=== PATIENT | female | born 1945 | race Caucasian/White ===

== ENCOUNTER 2022-02-05 12:57 | Emergency (ER) | payer MEDICARE, SELFPAY ==
--- NOTE | 2022-02-05 13:06 | ED.SKABFB ---
HPI - Skin/Abscess/Foreign Bdy General Chief complaint: Skin/Abscess/Foreign Body Stated complaint: Rash Time Seen by Provider: 02/05/22 13:05 Source: patient Mode of arrival: ambulatory Limitations: no limitations History of Present Illness HPI narrative: Ms. Rocha is a 76-year-old female patient presenting to the clinic today with complaints of rash x2 days. She reports she had a glass fixture fall approximately a week ago and received some small cuts to the lower legs. She feels that there may be glass still embedded into her legs. Reports when she gets into the bathtub her legs are on fire due to the abraised areas. MD complaint: rash Related Data Home Medications Medication Instructions Recorded Confirmed acyclovir 400 mg PO BID 02/05/22 02/05/22 brimonidine-timolol [Combigan] 0.2 drp LEFT EYE BID 02/05/22 02/05/22 diltiazem HCl 30 mg PO BID 02/05/22 02/05/22 hydralazine 25 mg PO QID PRN 02/05/22 02/05/22 latanoprost 0.005 drp LEFT EYE HS 02/05/22 02/05/22 levothyroxine 112 mcg PO DAILY 02/05/22 02/05/22 lisinopril-hydrochlorothiazide 1 tablet PO BID 02/05/22 02/05/22 omeprazole 40 mg PO DAILY 02/05/22 02/05/22 oxybutynin chloride 5 mg PO BID 02/05/22 02/05/22 pravastatin 10 mg PO DAILY 02/05/22 02/05/22 prednisolone acetate 1 drp LEFT EYE DAILY 02/05/22 02/05/22 Review of Systems Review of Systems: Pertinent positives per HPI. Patient denies any fever, chills, headache, visual changes, dizziness, cough, runny nose, sore throat, shortness of breath, chest pain, palpitations, nausea, vomiting, diarrhea, constipation, abdominal pain, or any urinary issues. PMFSH Comments At the time of my signature, I reviewed and agree with the nursing past medical, surgical, social, and family history. There is no relevant family history pertinent to the patient complaint. Exam Narrative: General: Well-developed, well nourished, in no apparent distress Cardio: Regular rate and rhythm, s1 and s2 normal, no murmur appreciated. Resp: Clear to auscultation bilaterally, no rhonchi, rales, wheezing or rubs. Integumentary: Mildred, warm, and dry without lesion, superficial open abrasions to bilateral anterior legs, 2+ pitting edema. No obvious FB palpable to bilateral anterior lower legs. Mild redness however there is no erythema or cellulitis. Course Course Emergency Course: Portions of this record may have been created with voice recognition software. Level of Care: Express Care Visit Vital Signs Vital signs: Vital signs reviewed Discharge Plan Discharge Clinical Impression: Superficial abrasion Patient Disposition: Home, Self-Care Condition: Stable Instructions: Antibiotic Form, Abrasion (ED) Additional Instructions: No palpable foreign body in bilateral anterior legs. Apply mupirocin cream as directed. Keep area clean and dry Wash with soap and water Follow-up with your PCP in 3 to 5 days if symptoms persist or sooner if it worsens Prescriptions: New mupirocin 2 % ointment 1 applic topical BID 7 Days Qty: 22 RF: 0 No Action acyclovir 400 mg tablet 400 mg PO BID RF: 0 brimonidine-timolol [Combigan] 0.2-0.5 % drops 0.2 drp LEFT EYE BID RF: 0 oxybutynin chloride 5 mg tablet 5 mg PO BID RF: 0 hydralazine 25 mg tablet 25 mg PO QID PRN (Reason: Anxiety) RF: 0 latanoprost 0.005 % drops 0.005 drp LEFT EYE HS RF: 0 prednisolone acetate 1 % drops,suspension 1 drp LEFT EYE DAILY RF: 0 diltiazem HCl 30 mg tablet 30 mg PO BID RF: 0 levothyroxine 112 mcg tablet 112 mcg PO DAILY RF: 0 lisinopril-hydrochlorothiazide 20-12.5 mg tablet 1 tablet PO BID RF: 0 omeprazole 40 mg capsule,delayed release(DR/EC) 40 mg PO DAILY RF: 0 pravastatin 10 mg tablet 10 mg PO DAILY RF: 0 Follow-up/Referrals: Supa,Jorge Bhatti MD [Primary Care Provider] - Time of Disposition: 13:15 Quality NIHSS Nursing Documentation ED NIHSS nursing documentation
[2022-02-05 13:12] VITALS: BP 143/78; PULSE 61; RESP 20; TEMP 37.8; O2SAT 98
[2022-02-05 13:24] VITALS: BP 143/78; PULSE 61; RESP 20; TEMP 37.8; O2SAT 98
== END 2022-02-05 13:26 | disposition home or self-care (01) ==
PROVIDERS: Emergency Provider Nurse Practitioner Family; PCP Internal Medicine
DX: S80.812A Abrasion, left lower leg, initial encounter (principal); S80.811A Abrasion, right lower leg, initial encounter; W25.XXXA Contact with sharp glass, initial encounter; E78.00 Pure hypercholesterolemia, unspecified; I10 Essential (primary) hypertension; K21.9 Gastro-esophageal reflux disease without esophagitis; Z94.7 Corneal transplant status
CPT/HCPCS: 99213; G0463